=== PATIENT | male | born 1980 | race Caucasian/White ===

== ENCOUNTER 2020-05-24 18:47 | Emergency (ER) | payer OTHER ==
[~2020-05-24] VITALS: Ht 165.1 cm; Wt 82.0 kg
--- NOTE | 2020-05-24 20:08 | NUR ---
PT PRESENTS TO THE ER FROM OUTSIDE [facility]. PT STATES "IT DON'T MATTER" WHEN ASKED IF HE'S COMFORTABLE COMMUNICATING IN [place]. PT WAS COVID + ON 05/10. PT COMPLAINS OF FEVERS, CHILLS, LOSS OF TASTE AND SMELL, UNABLE TO SLEEP, IRRITATED EYES, SORE THROAT SO BAD IT KEEPS HIM FROM TALKING. ALL THESE SYMPTOMS STARTED ABOUT 1-2 WEEKS AGO. PT'S CHIEF COMPLAINT IS LUQ PAIN X 8 HOURS. PT CONNECTED TO ALL MONITORS. NADN. CALL LIGHT IN REACH. ALL NEEDS MET AT THIS TIME. LAW ENFORCEMENT AT BEDSIDE.
[2020-05-24] MEDS ORDERED: KETOROLAC 30 MG/1 ML IVPush ONE (22:00)
[2020-05-24] MEDS ORDERED: KETOROLAC 30 MG/1 ML IM ONE (22:00)
[2020-05-24] MEDS ORDERED: SODIUM CHLORIDE FLUSH 10ML SYR IVF ONE (22:00)
[2020-05-24 22:21] LABS: BASOPHILS % (AUTO) 1 % (0-1); EOSINOPHILS % (AUTO) 2 % (1-7); LYMPHOCYTES % (AUTO) 33 % (22-44); MEAN CORPUSCULAR HEMOGLOBIN 26.6 pg (27.5-34.5); MEAN CORPUSCULAR HGB CONC 33.7 g/dL (33.2-36.2); MEAN PLATELET VOLUME 8.4 fL (7.4-10.4); MONOCYTES % (AUTO) 5 % (2-9); NEUTROPHILS % (AUTO) 60 % (42-75); PLATELET COUNT 270 x10^3/uL (130-400); RED BLOOD COUNT 5.58 x10^6/uL (4.38-5.82); RED CELL DISTRIBUTION WIDTH 13.7 % (9.4-14.8)
[2020-05-24 22:24] LABS: ALANINE AMINOTRANSFERASE 49 U/L (12-78); ALBUMIN 3.7 g/dL (3.4-5.0); ANION GAP 6 mmol/L (5-15); CALCIUM 8.8 mg/dL (8.5-10.1); CHLORIDE 110 mmol/L (98-107); CREATININE 0.93 mg/dL (0.7-1.3); MD NO
[2020-05-24 22:26] LABS: ALKALINE PHOSPHATASE 69 U/L (45-117); BILIRUBIN,TOTAL 0.4 mg/dL (0.2-1.0); TOTAL PROTEIN 7.5 g/dL (6.4-8.2)
[2020-05-24] MEDS ORDERED: MAALOX/HYOSCYAMINE/LIDOCAINE 45 ML BTL PO ONE (22:30)
[2020-05-24] MEDS ORDERED: MAALOX/HYOSCYAMINE/LIDOCAINE 45 ML BTL ONE (22:54)
[2020-05-24 22:57] VITALS: BP 127/77
== END 2020-05-25 01:14 | disposition home or self-care (01) ==
LOC: ED 20:48
DX: U07.1 COVID-19 (principal); R43.0 Anosmia; R11.2 Nausea with vomiting, unspecified; R05 Cough; R19.7 Diarrhea, unspecified; R06.02 Shortness of breath; R10.12 Left upper quadrant pain
CPT/HCPCS: 36415; 71045; 80053; 83690; 85025; 93005; 96374; 99285; J1885